=== PATIENT | female | born 1945 | race Caucasian/White ===

== ENCOUNTER 2016-07-10 12:18 | Emergency (ER) | payer OTHER ==
[2016-07-10 12:35] VITALS: TEMP 98
--- NOTE | 2016-07-10 12:37 | CPEKG ---
Heart Rate: 70 RR Interval: 857 P-R Interval: 188 QRSD Interval: 112 QT Interval: 416 QTC Interval: 449 P [place]: 80 QRS [place]: 52 T Wave [place]: 55 EKG Severity - ABNORMAL ECG - EKG Impression: SINUS RHYTHM EKG Impression: PROBABLE LEFT ATRIAL ABNORMALITY EKG Impression: NONSPECIFIC INTRAVENTRICULAR CONDUCTION DELAY Electronically Signed By: Gunner Delgado 10-Jul-2016 14:07:10
[2016-07-10 12:57] LABS: % IMMATURE GRANULYOCYTES 0.2 % (0.0-1.1); ABSOLUTE IMMATURE GRANULOCYTES 0.01 10^3/uL (0.00-0.10); ADD DIFF? NO; ADD MORPH? NO; ADD SCAN? NO; ATYPICAL LYMPHOCYTE FLAG 10 (0-99); FRAGMENT RBC FLAG 0 (0-99); HEMATOCRIT 41.6 % (38.0-47.0); HEMOGLOBIN 13.7 g/dL (12.6-16.3); LEFT SHIFT FLG 0 (0-99); LIPEMIA HEMOLYSIS FLAG 80 (0-99); MEAN CELL HEMOGLOBIN 32.7 pg (27.9-34.1); MEAN CELL HEMOGLOBIN CONCENTR. 32.9 g/dL (32.4-36.7); MEAN CELL VOLUME 99.3 fL (81.5-99.8); MEAN PLATELET VOLUME 9.2 fL (8.7-11.7); PLATELET CLUMPS FLAG 0 (0-99); PLATELET COUNT 232 10^3/uL (150-400); RED BLOOD CELL COUNT 4.19 10^6/uL (4.18-5.33); RED CELL DISTRIBUTION WIDTH 13.8 % (11.5-15.2)
--- NOTE | 2016-07-10 13:12 | UCPHY ---
H & P Patient Type: Established Chief Complaint Nursing Narrative: c/o of 2-3wks of HR palp on and off - today inc. amount of palpitations- had simlar episodes 5 yrs ago with Holter monitor @ - with no DX. Time Seen by Provider: 07/10/16 12:31 HPI/ROS: This patient has heart palpitations she describes as the heart skipping a beat . She has had this on and off for 2-3 weeks but slightly increased frequency this morning compared to usual prompting her visit. She had similar episodes 5 years ago with a negative Holter monitor review thereafter. She reports that she wrote her exercise bike this morning without significant change in her symptoms. She has no associated symptoms except for mild nausea. She also felt that she had slightly less exercise tolerance than usual while [place] the [place] over the weekend. ROS: No fevers or chills, HEENT: No URI symptoms recently, pulmonary: No cough, dyspnea or pleuritic pain. GI: Nausea but no vomiting. Endocrine: No diaphoresis or heat intolerance, integumentary: No skin rash 10 point ROS is otherwise negative Source: Patient Exam Limitations: No limitations - Personal History Current Tetanus Diphtheria and Acellular Pertussis (TDAP): Yes Tetanus Vaccine Date: within 10 yrs - Medical/Surgical History Hx Asthma: No Hx Chronic Respiratory Disease: No Hx Diabetes: No Hx Cardiac Disease: No Hx Renal Disease: No Hx Cirrhosis: No Hx Alcoholism: No Hx HIV/AIDS: No Hx Splenectomy or Spleen Trauma: No Other PMH: L ACL REPAIR, R HIP REPLACEMENT, R FOOT SURGERY - Family History Significant Family History: No pertinent family hx - Social History Smoking Status: Never smoked Alcohol Use: Occasionally Drug Use: None - Physical Exam Exam: General Appearance: Pleasant 71-year-old female appears younger than her stated age Alert, no distress. Eyes: Pupils equal and round no pallor or injection. ENT, Mouth: Mucous membranes moist. Respiratory: There are no retractions, lungs are clear to auscultation. Cardiovascular: Regular rate and rhythm. No murmur gallop rub. No JVD. No peripheral edema. Gastrointestinal: Abdomen is soft and nontender, no masses, bowel sounds normal. Neurological: Alert with no focal deficits Skin: Warm and dry, no rashes. Musculoskeletal: Neck is supple nontender. Extremities are symmetrical, full range of motion. Psychiatric: Mood and affect normal DIFFERENTIAL DIAGNOSIS: After history and physical exam differential diagnosis was considered for PVCs, PACs, anxiety, coronary syndrome, paroxysmal AFib Constitutional: Initial Vital Signs Temperature (C) 36.6 C 07/10/16 12:29 Heart Rate 77 07/10/16 12:29 Respiratory Rate 18 07/10/16 12:29 Blood Pressure 169/67 H 07/10/16 12:29 O2 Sat (%) 100 07/10/16 12:29 O2 Delivery Mode Room Air Allergies/Adverse Reactions: No Known Allergies Allergy (Verified 05/05/16 19:50) Home Medications: Medication Instructions Recorded Ambien 05/05/16 Estrace 05/05/16 Medical Decision Making - Diagnostics EKG Interpretation: 12 lead EKG performed at 12:33 p.m. reveals sinus rhythm at 70 Intervals: P R of 188, and QTC of 449 axis: Normal throughout Overall assessment: Sinus rhythm with nonspecific interventricular conduction delay however when compared to previous EKG dated February 10, 2015 appreciate no significant interval change. ED Course/Re-evaluation: IV, monitor Normal saline bolus. No significant ectopy while on the monitor. I counseled her regarding her palpitations. After workup today, I find no evidence of coronary syndrome, significant metabolic disarray, thyroid disease or other concerning findings. However the patient did have an elevated BUN with recent skiing activity she may have heart palpitations and due in part to dehydration. This was treated with the IV normal saline. I counseled her regarding this. - Data Points Laboratory Results: Laboratory Results 07/10/16 12:50 07/10/16 12:50 07/10/16 12:50 WBC 5.57 10^3/uL (3.80-9.50) RBC 4.19 10^6/uL (4.18-5.33) Hgb 13.7 g/dL (12.6-16.3) Hct 41.6 % (38.0-47.0) MCV 99.3 fL (81.5-99.8) MCH 32.7 pg (27.9-34.1) MCHC 32.9 g/dL (32.4-36.7) RDW 13.8 % (11.5-15.2) Plt Count 232 10^3/uL (150-400) MPV 9.2 fL (8.7-11.7) Neut % (Auto) 67.5 % (39.3-74.2) Lymph % (Auto) 23.7 % (15.0-45.0) [place] % (Auto) 7.5 % (4.5-13.0) Eos % (Auto) 0.4 L % (0.6-7.6) Baso % (Auto) 0.7 % (0.3-1.7) Nucleat RBC Rel Count 0.0 % (0.0-0.2) Absolute Neuts (auto) 3.76 10^3/uL (1.70-6.50) Absolute Lymphs (auto) 1.32 10^3/uL (1.00-3.00) Absolute Monos (auto) 0.42 10^3/uL (0.30-0.80) Absolute Eos (auto) 0.02 L 10^3/uL (0.03-0.40) Absolute Basos (auto) 0.04 10^3/uL (0.02-0.10) Absolute Nucleated RBC 0.00 10^3/uL (0-0.01) Immature Gran % 0.2 % (0.0-1.1) Immature Gran # 0.01 10^3/uL (0.00-0.10) Sodium 140 mEq/L (134-144) Potassium 3.7 mEq/L (3.5-5.2) Chloride 104 mEq/L (97-110) Carbon Dioxide 24 mEq/l (22-31) Anion Gap 12 mEq/L (8-16) BUN 28 H mg/dL (7-23) Creatinine 0.6 mg/dL (0.6-1.0) Estimated GFR > 60 Glucose 116 H mg/dL (70-100) Calcium 9.3 mg/dL (8.5-10.4) Troponin I < 0.012 ng/mL (0-0.034) TSH 2.250 uIU/mL (0.465-4.680) Departure - Departure Disposition: Home, Routine, Self-Care Clinical Impression: Heart palpitations, Dehydration Condition: Good Instructions: Palpitations (ED) Additional Instructions: Diagnosis: 1. Heart palpitations 2. Dehydration Plan: Drink plenty fluids Call the prefinish operator arrange follow-up appointment for further evaluation Go to the emergency department for any significant worsening symptoms despite the treatment plan Referrals: Jason Scott MD [Primary Care Provider] - As per Instructions Danni Villalobos MD [Medical Doctor] - As per Instructions - PQRS PQRS Measurement: 134: Depression screening and followup, PRIME MD-PHQ2 (12 years and older) Over the last 2 weeks, how often have you been bothered by any of the following problems? 1. Feeling down, depressed, or hopeless? 2. Little interest or pleasure in doing things? Patient answered no to both 1 and 2 130: Documentation of medications. Reviewed all patient medications, doses, route and frequency. 226: Do you smoke? [No.] 47: 65 and older: Advanced care planning. Patient designates surrogate decision maker as spouse 51: 18 years old and older with diagnosis of COPD, spirometry performance. NA 52: 18 years old and older with COPD and symptoms of COPD or FEV1<60% predicted prescribed a B Agonist. NA
[2016-07-10 13:33] LABS: TROPONIN I < 0.012 ng/mL (0-0.034)
[2016-07-10 13:36] LABS: ANION GAP 12 mEq/L (8-16); CALCIUM 9.3 mg/dL (8.5-10.4); CARBON DIOXIDE 24 mEq/l (22-31); CHLORIDE 104 mEq/L (97-110); CREATININE 0.6 mg/dL (0.6-1.0); GLOMERULAR FILTRATION RATE > 60; GLUCOSE 116 mg/dL (70-100); POTASSIUM 3.7 mEq/L (3.5-5.2); SODIUM 140 mEq/L (134-144)
[2016-07-10] MEDS ORDERED: NS 1,000 ML IV ONE (13:41)
[2016-07-10 14:19] VITALS: BP 121/66; PULSE 65; RESP 14; O2SAT 96
== END 2016-07-10 14:38 | disposition home or self-care (01) ==
LOC: CED 12:18
DX: R00.2 Palpitations (principal); E86.0 Dehydration
CPT/HCPCS: 93005; 96360; G0463; 80048-PO; 84443-PO; 84484-PO; 85025-PO; 93010-PO; 99215-PO

== ENCOUNTER → 2016-07-16 | Outpatient (CLI) | payer OTHER ==
[~2016-07-16] MED LIST: GADOBUTROL 10 ML VIAL IVP ONE
--- NOTE | 2016-07-16 18:24 | MR ---
MRI Abdomen, Without and With Contrast - July 16, 2016 Indication: Abdominal pain. 71-year-old woman with abnormal pancreatic duct. Surveillance. Technique: Axial single shot fast spin echo, axial and coronal 2-D T2-weighted FIESTA, axial T1 dual echo, pre- and postcontrast dynamic T1 fat-suppressed LAVA imaging, and diffusion-weighted imaging i n the axial plane. 5 mL of Gadavist were uneventfully intravenously administered. Comparison: MRI of the abdomen dated August 29, [address] of the abdomen and pelvis dated 2015 and January 18, 2016. Findings: Fibrosis involving the distal half of the pancreatic body, evidenced by decreased T1 signa l with gradual enhancement on the delay and equilibrium phase is unchanged. The dilated pancreatic du ct in the distal body and tail with an abrupt transition (best demonstrated on image 18 of the axial FIESTA T2 sequence) correlates to the region of fibrosis and is unchanged since August 2015. The do wnstream pancreatic duct is imperceptibly small (normal caliber). No discernible underlying hypervas cular mass or abnormality on the delayed postcontrast imaging or diffusion-weighted imaging. The panc reatic head and neck and central body have normal signal intensity and enhancement. The probably benign minimally dilated sidebranch duct in the pancreatic head is unchanged and is best demonstrated on image 13 of the axial T2 FIESTA sequence. The 8-mm flash-filling hemangioma in the lateral segment left lobe of the liver (image 89 of the axia l arterial phase) is unchanged. Liver is otherwise normal. No hepatic steatosis or suspicious liver l esions. No biliary dilation. The common bile duct is normal caliber and tapers normally to the major papilla. Common bile duct measures 3 to 4 mm in diameter. The portal and hepatic venous system are pa tent. The gallbladder is normal. No cholelithiasis or choledocholithiasis. The adrenal glands, kidneys and spleen are normal. Numerous benign bilateral parapelvic cysts are unc hanged. Bone marrow signal is normal. No free fluid or mesenteric edema. Impression: 1. 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 Query underlying pancreatic duct stricture, possibly from previous bout of p ancreatitis or trauma. No discernible underlying pancreatic lesion. Recommend continued intermittent surveillance. 2. No acute pancreatitis or explanation for abdominal pain. 3. Normal gallbladder. No cholelithiasis or choledocholithiasis. 4. Benign flash-filling hemangioma in the left lobe of the liver. No hepatic steatosis or cirrhosis. 5. Probably benign minimally dilated sidebranch duct in the pancreatic head is unchanged.
== END ==
LOC: FIMAGING 07:04
PROVIDERS: ATTEND Internal Medicine Gastroenterology
DX: K86.89 Other specified diseases of pancreas (principal); D18.09 Hemangioma of other sites
CPT/HCPCS: 74183; A9585

== ENCOUNTER → 2017-02-26 | Outpatient (CLI) | payer OTHER | LOC: FIMAGING 11:55 | PROVIDERS: ATTEND Nurse Practitioner Adult Health | DX: N85.8 Other specified noninflammatory disorders of uterus (principal); D25.2 Subserosal leiomyoma of uterus ==

== ENCOUNTER 2017-04-08 06:36 | Day surgery (SDC) | payer OTHER ==
[2017-04-08] MEDS ORDERED: LIDOCAINE 1% 2 ML INJ ID PRN (07:19)
[2017-04-08] MEDS ORDERED: LR 1,000 ML IV ONE (07:19)
[2017-04-08 07:30] VITALS: RESP 16
[2017-04-08] MEDS ORDERED: MIDAZOLAM 2 MG/2 ML VIAL IVP ONE (07:57)
--- NOTE | 2017-04-08 07:58 | PDANEPAE ---
ANE Past Medical History - Cardiovascular History Hx Hypertension: No Hx Arrhythmias: No Hx Chest Pain: No Hx Coronary Artery / Peripheral Vascular Disease: No Hx CHF / Valvular Disease: No Hx Palpitations: Yes Cardiovascular History Comment: Excellent effort tolerance. - Pulmonary History Hx COPD: No Hx Asthma/Reactive Airway Disease: No Hx Recent Upper Respiratory Infection: No Hx Oxygen in Use at Home: No Hx Sleep Apnea: No Sleep Apnea Screening Result - Last Documented: Negative - Neurologic History Hx Cerebrovascular Accident: No Hx Seizures: No Hx Dementia: No - Endocrine History Hx Diabetes: No Hypothyroid: No Hyperthyroid: No Obesity: no - Renal History Hx Renal Disorders: No - Liver History Hx Hepatic Disorders: No - Neurological & Psychiatric Hx Hx Neurological and Psychiatric Disorders: No - Cancer History Hx Cancer: No - Congenital Disorder History Hx Congenital Disorders: No - GI History Hx Gastrointestinal Disorders: No - Chronic Pain History Chronic Pain: Yes (ABDOMINAL PAIN) - Surgical History Prior Surgeries: RIGHT WRIST SURGERY 2013. BOTH FEET SURGERY 2012. RIGHT HIP REPLACEMENT 2010. LEFT KNEE ACL REPAIR 9 YRS AGO. C-SECTIONS 40 YRS AGO ANE Review of Systems Review of Systems: - Exercise capacity METS (RN): 4 METS ANE Patient History - Allergies Allergies/Adverse Reactions: No Known Allergies Allergy (Verified 05/05/16 19:50) - Home Medications Home Medications: Ambien 5 HS 05/05/16 [Last Taken 04/08/17 01:00] Estrace 0.1 mg MWF 05/05/16 [Last Taken 04/06/17] - NPO status NPO Since - Liquids (Date): 04/08/17 NPO Since - Liquids (Time): 01:00 NPO Since - Solids (Date): 04/07/17 NPO Since - Solids (Time): 22:00 - Smoking Hx Smoking Status: Never smoked - Family Anes Hx Family Hx Anesthesia Complications: none ANE Labs/Vital Signs - Vital Signs Blood Pressure: 138/72 Heart Rate: 70 Respiratory Rate: 16 O2 Sat (%): 95 Height: 170.18 cm Weight: 56.699 kg ANE Physical Exam - Airway Neck exam: FROM Mallampati Score: Class 1 Mouth exam: normal dental/mouth exam - Pulmonary Pulmonary: no respiratory distress - Cardiovascular Cardiovascular: regular rate and rhythym - ASA Status ASA Status: II ANE Anesthesia Plan Anesthesia Plan: GA w LMA
--- NOTE | 2017-04-08 08:19 | PDHPUP ---
History & Physical Update H&P update statement: This history and physical update is based on an assessment of the patient which was completed after admission or registration (within 24 hours), but prior to the surgery/procedure.
[2017-04-08] MEDS ORDERED: fentaNYL 100 MCG/2 ML INJ ONE ×2 (08:30→10:09)
[2017-04-08] MEDS ORDERED: PROPOFOL 200 MG/20 ML VIAL ONE ×2 (08:30→09:20)
[2017-04-08] MEDS ORDERED: LIDOCAINE 2% 5 ML SDV ONE (08:30)
[2017-04-08] MEDS ORDERED: ONDANSETRON 4 MG/2 ML VIAL ONE (08:58)
[2017-04-08] MEDS ORDERED: DEXAMETHASONE 4 MG/ML VIAL ONE (08:58)
[2017-04-08] MEDS ORDERED: PROMETHAZINE HCL 25 MG/ML INJ IVP PRN (09:58)
[2017-04-08] MEDS ORDERED: NALOXONE HCL 0.4 MG/ML INJ IVP PRN (09:58)
[2017-04-08] MEDS ORDERED: LR 500 ML IV PRN (09:58)
[2017-04-08] MEDS ORDERED: HYDROCODONE/APAP 5/325 TAB PO PRN (09:58)
[2017-04-08] MEDS ORDERED: fentaNYL 100 MCG/2 ML INJ IVP PRN (09:58)
--- NOTE | 2017-04-08 09:59 | POSTANESTH ---
Post Anesthetic Evaluation Cardiovascular Status: Normal, Stable Respiratory Status: Normal, Stable Level of Consciousness/Mental Status: Can Participate in Eval Pain Control: Adequate, Prn Tx Ordered Nausea/Vomiting Control: Adequate, Prn Tx Ordered Complications Possibly Related to Anesthesia: None Noted
[2017-04-08 11:12] VITALS: PULSE 62; TEMP 637.9
--- NOTE | 2017-04-08 11:33 | POSTOPPROG ---
Post Op Note Date of Operation: 04/08/17 Surgeon: Jelena Ng Anesthesiologist: Dr. Foster Anesthesia: LMA Pre-op Diagnosis: pain and endometrail fluid, stenotic cervix Post-op Diagnosis: endomerial polyps , Indication: pain and fluid in endometrium Procedure: difficult dilation of cervix, h/s polypecotmy Findings: endometrial polyps Inf/Abcess present in the surg proc area at time of surgery?: No EBL: Minimal Complications: none
[2017-04-08 11:38] VITALS: BP 113/61; O2SAT 95
--- NOTE | 2017-04-08 12:24 | POSTOPPROG ---
Post Op Note Date of Operation: 04/08/17 Surgeon: Jelena Ng Anesthesia: LMA Pre-op Diagnosis: pelvic pain, endometrial fluid Post-op Diagnosis: stenotic cervix Indication: as above Procedure: cervical dilation, difficult, H/S eval with polypectomy Findings: polyps Inf/Abcess present in the surg proc area at time of surgery?: No EBL: Minimal
--- NOTE | 2017-04-08 12:28 | GOP ---
[f rep st] OPERATIVE REPORT DATE OF OPERATION: 04/08/2017 SURGEON: Jelena Ng MD ANESTHESIA: General with LMA. ANESTHESIOLOGIST: Parth Foster MD. PREOPERATIVE DIAGNOSIS: 1. Complex endometrial fluid. 2. Pelvic pressure. 3. Stenotic cervix. POSTOPERATIVE DIAGNOSIS: 1. Complex endometrial fluid. 2. Pelvic pressure. 3. Stenotic cervix. PROCEDURE PERFORMED: Very difficult cervical dilation with hysteroscopic resection of endometrial po lyps. FINDINGS: Again, a very stenotic cervix, unable to even identify the os, and otherwise normal-appear ing endometrium with some polyps. ESTIMATED BLOOD LOSS: Minimal. DESCRIPTION OF PROCEDURE: With informed consent signed, patient was taken to the operating room. Jacobo robertson had previously been taking 3 Cytotec and Estrace cream to help with cervical dilation. She was pre pped and draped in the usual sterile fashion. Tenaculum placed on the posterior lip of the cervix, a nd spent about 20 minutes to even identify the cervical os. Once it was identified, it was very slow ly dilated to 9.5 mm; this was about a 30-minute process. Then, the hysteroscope placed using normal saline as a filling medium. Was noted to have normal endometrial tissue with some polyps, and these were resected with the hysteroscope morcellator, Truclear. Once it was felt that all the tissue and fluid were removed, the hysteroscope was removed, and patient placed in supine position, awakened in the operating room, and taken to recovery room in stable condition, having tolerated the procedure w ell. INDICATIONS FOR PROCEDURE: Patient is a 72-year-old , status post 2 C sections, who presented w ith pelvic pain. Ultrasound done at [facility] showing [id number] endometrium fluid measuring 5 cm of fluid. Biopsy has been attempted by Dr. Michaela Velez, which was unsuccessful, and patient refer red here by Dr. Jimbo Scott for re-attempt at biopsy. Patient was given 3 Cytotec and Estrace crea m to help with cervical dilation, and an attempt was done on 03/12/2017, and cervix was so completely flat to the vagina that biopsy was again unsuccessful. A repeat ultrasound done to assure that no c hanges happened to the fluid on 04/02/2017, again showed very extensive fluid in the endometrium with a polyp. Because the fluid is [id number], and because she is having pain, I feel that di lating the cervix surgically and draining the fluid and taking a tissue sample would be beneficial fo r her above symptoms. COMPLICATIONS: None. /[id number]/MODL
== END 2017-04-08 11:38 | disposition home or self-care (01) ==
LOC: FSGY 06:36
PROVIDERS: ATTEND Obstetrics & Gynecology Gynecology
PROC: 0UDB8ZZ Extraction of Endometrium, Via Natural or Artificial Opening Endoscopic (ICD-10-PCS; principal; 2017-04-08 08:00)
DX: N84.0 Polyp of corpus uteri (principal); N88.2 Stricture and stenosis of cervix uteri
CPT/HCPCS: 58563; C1782; J1100; J2250; J2405; J2704; J3010

== ENCOUNTER 2017-05-24 06:01 | Emergency (ER) | payer OTHER ==
[2017-05-24 06:12] VITALS: BP 141/60; PULSE 74; RESP 16; TEMP 97.3; O2SAT 96
[2017-05-24] MEDS ORDERED: PHENAZOPYRIDINE HCL 200 MG TAB PO ONE (06:13)
--- NOTE | 2017-05-24 06:14 | EDPHY ---
H & P Stated Complaint: burning vag painful urination HPI/ROS: HPI CHIEF COMPLAINT: Dysuria HISTORY OF PRESENT ILLNESS: Patient is a very pleasant 72-year-old female she is otherwise healthy does not take any daily medications she has had multiple orthopedic surgeries, she presents to the emergency room at 6 o'clock in the morning with dysuria. She states that she woke up around 430 this morning with pain at her urethra opening and pain when she urinates. She denies any significant vaginal discharge or vaginal bleeding. She denies burning in her vagina but she complains of burning at her urethra. Worse when she urinates. No back pain. No fever. No nausea no vomiting no abdominal pain. She thinks she may have a urinary tract infection. Past Medical History: No significant medical history Past Surgical History: Multiple orthopedic surgeries Social History: Denies daily use drugs alcohol tobacco. Lives locally in [place]. Family History: Noncontributory ROS REVIEW OF SYSTEMS: A comprehensive 10 point review of systems is otherwise negative aside from elements mentioned in the history of present illness. Exam Constitutional appears well nontoxic triage nursing summary reviewed, vital signs reviewed, awake/alert. Eyes normal conjunctivae and sclera, EOMI, PERRLA. HENT normal inspection, atraumatic, moist mucus membranes, no epistaxis, neck supple/ no meningismus, no raccoon eyes. Respiratory clear to auscultation bilaterally, normal breath sounds, no respiratory distress, no wheezing. Cardiovascular rate normal, regular rhythm, no murmur, no edema, distal pulses normal. Gastrointestinal soft, non-tender, no rebound, no guarding, normal bowel sounds, no distension, no pulsatile mass. Genitourinary no CVA tenderness. Musculoskeletal no midline vertebral tenderness, full range of motion, no calf swelling, no tenderness of extremities, no meningismus, good pulses, neurovascularly intact. Skin pink, warm, & dry, no rash, skin atraumatic. Neurologic awake, alert and oriented x 3, AAOx3, moves all 4 extremities equally, motor intact, sensory intact, CN II-XII intact, normal cerebellar, normal vision, normal speech. Psychiatric normal mood/affect. Heme/Lymph/Immune no lymphadenopathy. Differential Diagnosis: Includes but is not limited to in a particular order UTI, cystitis, pyelonephritis, yeast infection Medical Decision Making: Plan for this patient check UA, give dose of Pyridium here for comfort. Re-evaluation: Urinalysis reviewed she indicates UTI. Will start on Keflex here in emergency room. Peridium and Keflex for home. Return if worsening symptoms includes abdominal pain, fever, vomiting. She understands. Source: Patient - Personal History Current Tetanus/Diphtheria Vaccine: Unsure Current Tetanus Diphtheria and Acellular Pertussis (TDAP): Unsure Tetanus Vaccine Date: within 10 yrs - Medical/Surgical History Hx Asthma: No Hx Chronic Respiratory Disease: No Hx Diabetes: No Hx Cardiac Disease: No Hx Renal Disease: No Hx Cirrhosis: No Hx Alcoholism: No Hx HIV/AIDS: No Hx Splenectomy or Spleen Trauma: No Other PMH: L ACL REPAIR, R HIP REPLACEMENT, R FOOT SURGERY. r wrist - Social History Smoking Status: Never smoked Constitutional: Initial Vital Signs Temperature (C) 36.3 C 05/24/17 06:07 Heart Rate 74 05/24/17 06:07 Respiratory Rate 16 05/24/17 06:07 Blood Pressure 141/60 H 05/24/17 06:07 O2 Sat (%) 96 05/24/17 06:07 O2 Delivery Mode Room Air Allergies/Adverse Reactions: No Known Allergies Allergy (Verified 05/05/16 19:50) Home Medications: Medication Instructions Recorded Ambien 5 HS 05/05/16 Estrace 0.1 mg MWF 05/05/16 Cephalexin [Keflex] 500 mg PO Q6H #28 cap 05/24/17 Lotemax 0.5% (RX) 05/24/17 Phenazopyridine HCl [Pyridium] 200 mg PO TID #15 tab 05/24/17 Medical Decision Making - Data Points Laboratory Results: 05/24/17 06:27 Urine Color YELLOW Urine Appearance MODERATELY TURBID Urine pH 5.0 (5.0-7.5) Ur Specific [place] 1.023 (1.002-1.030) Urine Protein 2+ H (NEGATIVE) Urine Ketones NEGATIVE (NEGATIVE) Urine Blood 3+ H (NEGATIVE) Urine Nitrate NEGATIVE (NEGATIVE) Urine Bilirubin NEGATIVE (NEGATIVE) Urine Urobilinogen NEGATIVE EU EU (0.2-1.0) Ur Leukocyte Esterase 3+ H (NEGATIVE) Urine RBC Pending Urine WBC Pending Ur Epithelial Cells Pending Urine Glucose NEGATIVE (NEGATIVE) Medications Given: Discontinued Medications Phenazopyridine HCl (Pyridium) 200 mg PO EDNOW ONE Stop: 05/24/17 06:14 Last Admin: 05/24/17 06:17 Dose: 200 mg Departure - Departure Disposition: Home, Routine, Self-Care Clinical Impression: Urinary tract infection Qualifiers: Urinary tract infection type: acute cystitis Hematuria presence: with hematuria Qualified Code(s): N30.01 - Acute cystitis with hematuria Condition: Good Instructions: Urinary Tract Infection in Women (ED) Additional Instructions: 1. Drink lots of fluids stay well-hydrated today. 2. Return emergency room if develops worsening symptoms questions or concerns includes abdominal pain, fever, back pain worsening urinary symptoms. 3. Antibiotic as prescribed. Referrals: Jason Scott MD [Primary Care Provider] - As per Instructions Prescriptions: Cephalexin [Keflex] 500 mg PO Q6H #28 cap Phenazopyridine HCl [Pyridium] 200 mg PO TID #15 tab
[2017-05-24 06:35] LABS: COLOR YELLOW; LEUKOCYTE ESTERASE,URINE 3+ (NEGATIVE); NITRITE,URINE NEGATIVE (NEGATIVE)
[2017-05-24] MEDS ORDERED: CEPHALEXIN 500 MG CAP PO ONE (06:37)
[2017-05-24] MEDS ORDERED: CEPHALEXIN 500MG PREPACK#4 BTL TAKEHOME ONE (06:37)
[2017-05-24 06:41] LABS: MUCUS 3+ /lpf (NONE-1+); RBC,URINE 50-182 /hpf (0-3); WBC,URINE 50-182 /hpf (0-3); YEAST PRESENT /hpf (NONE SEEN)
== END 2017-05-24 06:46 | disposition home or self-care (01) ==
DX: N30.01 Acute cystitis with hematuria (principal); B96.20 Unspecified Escherichia coli [E. coli] as the cause of diseases classified elsewhere; B95.1 Streptococcus, group B, as the cause of diseases classified elsewhere

== ENCOUNTER → 2017-07-29 | Outpatient (CLI) | payer OTHER ==
[~2017-07-29] MED LIST changes: -GADOBUTROL 10 ML VIAL IVP ONE; +IOPAMIDOL (ISOVUE-300) 100 ML BTL ONE
== END ==
LOC: FIMAGING 12:50
PROVIDERS: ATTEND Internal Medicine Gastroenterology
DX: K86.9 Disease of pancreas, unspecified (principal); I51.7 Cardiomegaly; I70.0 Atherosclerosis of aorta; M51.36 Other intervertebral disc degeneration, lumbar region; M51.37 Other intervertebral disc degeneration, lumbosacral region; M46.96 Unspecified inflammatory spondylopathy, lumbar region
CPT/HCPCS: 74170; Q9967

== ENCOUNTER → 2018-03-11 | Outpatient (CLI) | payer OTHER | LOC: FIMAGING 15:56 | PROVIDERS: ATTEND Internal Medicine | DX: K59.01 Slow transit constipation (principal); K57.90 Diverticulosis of intestine, part unspecified, without perforation or abscess without bleeding; K86.89 Other specified diseases of pancreas | CPT/HCPCS: 74177; Q9967; 82565-PO ==

== ENCOUNTER → 2018-05-12 | Outpatient (CLI) | payer OTHER | LOC: FIMAGING 13:00 | PROVIDERS: ATTEND Physician Assistant Medical | DX: K59.00 Constipation, unspecified (principal); R10.9 Unspecified abdominal pain ==